=== PATIENT | female | born 1935 ===

== ENCOUNTER → 2021-01-11 08:00 | Outpatient (CLI) | payer OTHER ==
[~2021-01-11 08:00] MED LIST: ZANTAC300 MG PO
== END | disposition home or self-care (01) ==
LOC: PPH VACUNA 08:00
PROVIDERS: ATTEND Emergency Medicine Pediatric Emergency Medicine
DX: Z23 Encounter for immunization (principal)

== ENCOUNTER 2022-01-04 08:38 | Outpatient (CLI) | payer OTHER | END 2022-01-04 08:42 | disposition home or self-care (01) | LOC: SONOGRAMA 08:38 | PROVIDERS: ATTEND Pathology Anatomic Pathology & Clinical Pathology | DX: D37.039 Neoplasm of uncertain behavior of the major salivary glands, unspecified (principal) ==